=== PATIENT | male | born 1980 | race Caucasian/White ===

== ENCOUNTER 2023-03-07 16:46 | Observation (INO) | payer BC ==
[~2023-03-07] VITALS: Ht 188 cm; Wt 140.2 kg
[2023-03-07 16:46] VITALS: BP 133/102
--- NOTE | 2023-03-07 16:46 | NUR ---
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
[2023-03-07] MEDS ORDERED: NS 1000ML 1,000 ML IV STA (17:26)
[2023-03-07] MEDS ORDERED: NS 1000ML 1,000 ML ONE (17:30)
--- NOTE | 2023-03-07 17:30 | ER.PDOC ---
General Chief Complaint: General Complaint Stated Complaint: LOWER BACK PAIN Time seen by MD: 17:28 Source: patient Exam Limitations: no limitations History of Present Illness Initial Comments Abdominal pain, low back pain, generalized body aches, headache and does not just feel well for the last 3 days. He reports subjective fever. No nausea, vomiting or diarrhea. Severity/Quality: moderate, sharpness Radiation: no radiation Associated Symptoms: other (Lower back pain) Exacerbated by: nothing Relieved By: nothing Allergies: Coded Allergies: Penicillins (Verified Allergy, Unknown, ., 03/07/23) Vital Signs First Vital Signs Date Time Temp Pulse Resp B/P (MAP) Pulse Ox O2 Delivery O2 Flow Rate FiO2 03/07/23 16:46 99.9 134 18 93 03/07/23 16:46 133/102 (112) Room Air* 0 21 Last Vital Signs Date Time Temp Pulse Resp B/P (MAP) Pulse Ox O2 Delivery O2 Flow Rate FiO2 03/07/23 16:46 99.9 134 18 03/07/23 16:46 133/102 (112) 93 Room Air* 0 21 Past Medical History Medical History: diabetes Surgical History: no surgical history Family History Significant Family History: no pertinent family hx Social History Smoking: non-smoker Alcohol Use: none Drug Use: marijuana Constitutional: no symptoms reported EENTM: no symptoms reported Respiratory: no symptoms reported Cardiovascular: no symptoms reported Gastrointestinal: see HPI Musculoskeletal: see HPI All Other Systems: Reviewed and Negative Physical Exam General Appearance: No Apparent Distress, WD/WN, Obese HEENT: PERRL/EOMI, Normal ENT Inspection, TMs Normal, Pharynx Normal Neck: Non-Tender, Full Range of Motion, Supple, Normal Inspection Respiratory: chest non-tender, lungs clear, normal breath sounds, no respiratory distress, no accessory muscle use Cardiovascular: Normal Peripheral Pulses, Regular Rate, Rhythm, No Edema, No Gallop, No JVD, No Murmur Gastrointestinal: Normal Bowel Sounds, No Organomegaly, No Pulsatile Mass, Guarding, Tenderness (Upper abdomen) Back: Other (tenderness across lower back) Extremities: Normal Range of Motion, Non-Tender, Normal Inspection, No Pedal Edema, No Calf Tenderness, Normal Capillary Refill, Pelvis Stable 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 (03/07/23 17:26) Helicobacter Pylori (03/07/23 17:26) PT (03/07/23 17:26) Ct Abd/Pel With Iv Contrast (03/07/23 17:26) Partial Thromboplastin Time. (03/07/23 17:26) Urinalysis (03/07/23 17:26) Lactic Acid(Ml) (03/07/23 17:26) 0.9 % Sodium Chloride (Ns 1000ml) (03/07/23 17:26) EKG (03/07/23 17:) 0.9 % Sodium Chloride (Ns 1000ml) (03/07/23 17:30) Ondansetron Hcl/Pf (Zofran) (03/07/23 17:32) Covid19 Antigen Beronica Xenia (03/07/23 17:36) Ondansetron Hcl/Pf (Zofran) (03/07/23 17:36) Ketorolac Tromethamine (Toradol) (03/07/23 18:02) Ketorolac Tromethamine (Toradol) (03/07/23 18:03) Procalcitonin (03/07/23 18:10) Strep Screen (03/07/23 19:05) Vital Signs Date Time Temp Pulse Resp B/P (MAP) Pulse Ox O2 Delivery O2 Flow Rate FiO2 03/07/23 16:46 99.9 134 18 03/07/23 16:46 99.9 134 18 133/102 (112) 93 Room Air* 0 21 03/07/23 16:46 99.9 134 18 93 Administered Medications Medications (Trade) Dose Ordered Sig/Love Route PRN Reason Start Time Stop Time Status Last Admin Dose Admin Ketorolac Tromethamine (Toradol) 30 mg STAT STAT IV 03/07/23 18:02 03/07/23 18:03 DC 03/07/23 18:07 30 MG Ondansetron HCl (Zofran) 4 mg STAT STAT IV 03/07/23 17:36 03/07/23 17:37 DC 03/07/23 17:41 4 MG Sodium Chloride 1,000 ml @ 1,200 mls/hr Q50M STAT IV 03/07/23 17:26 03/07/23 18:15 DC 03/07/23 17:31 1,200 MLS/HR Laboratory Tests Test 03/07/23 00:00 03/07/23 17:31 03/07/23 17:33 03/07/23 19:10 Urine Collection Type RANDOM Urine Color YELLOW Urine Appearance CLEAR Urine Bilirubin NEGATIVE (NEGATIVE) Urine Ketones NEGATIVE (NEGATIVE) Urine Specific [place] 1.020 (1.005-1.030) Urine pH 8.5 (4.5-8.0) Urine Protein NEGATIVE (NEGATIVE) Urine Urobilinogen 0.2 E.U./dL (0.2) Urine Nitrate NEGATIVE (NEGATIVE) Urine Leukocyte Esterase NEGATIVE (NEGATIVE) Urine Glucose (Auto)(UA) NEGATIVE (NEGATIVE) Urine Blood NEGATIVE (NEGATIVE) White Blood Count 15.5 10^3/uL (4.5-11.0) H Red Blood Count 5.56 10^6/uL (4.50-5.90) Hemoglobin 15.2 g/dL (13.9-16.3) Hematocrit 45.8 % (37.0-53.0) Mean Corpuscular Volume 82.4 fL (78-100) Mean Corpuscular Hemoglobin 27.3 pg (26-34) Mean Corpuscular Hemoglobin Concent 33.2 g/dL (33-36.5) Red Cell Distribution Width 13.2 % (11.5-14.5) Platelet Count 204 10^3/uL (150-400) Mean Platelet Volume 10.0 fL (7.8-11.0) Neutrophils (%) (Auto) 91.4 % (41.0-85.0) *H Lymphocytes (%) (Auto) 4.3 % (24.0-44.0) *L Monocytes (%) (Auto) 3.5 % (5.0-12.0) L Neutrophils # (Auto) 14.2 10^3/uL (1.8-7.7) H Lymphocytes # (Auto) 0.67 10^3/uL1 (1.0-4.8) L Monocytes # (Auto) 0.5 10^3/uL (0.3-0.8) Absolute Immature Granulocyte (auto 0.02 10^3 u/L (0-2) Absolute Eosinophils (auto) 0.1 10^3/uL (0.0-0.2) Immature Granulocytes % 0.10 % (0.00-0.50) Eosinophils % 0.4 % (0.0-5.0) Basophils % 0.3 % (0.0-0.2) H Basophils # 0.0 10^3/uL (0.0-0.1) Prothrombin Time 10.2 SEC (9.7-11.6) INR 1.0 Activated Partial Thromboplast Time 23.6 SEC (22.5-33.1) Sodium Level 140 mmol/L (132-145) Potassium Level 3.6 mmol/L (3.6-5.2) Chloride Level 103.0 mmol/L (96-109) Carbon Dioxide Level 27.4 mmol/L (20.0-32) Anion Gap 13.2 Blood Urea Nitrogen 11 mg/dL (7-18) Creatinine 1.14 mg/dL (0.59-1.40) Estimated GFR () 85.2 (>/=60) Est GFR (CKD-EPI)(Non-Afr [place]) 70.4 (>/=60) BUN/Creatinine Ratio 9.0 (10.0-20.0) L Glucose Level 93 mg/dL (70-110) Lactic Acid Level 1.6 mmol/L (0.5-1.9) Calcium Level 8.8 mg/dL (8.4-10.5) Total Bilirubin 1.8 mg/dL (0.2-1.0) H Aspartate Amino Transferase (AST) 30 U/L (0-35) Alanine Aminotransferase (ALT) 58 U/L (12-78) Alkaline Phosphatase 87 U/L (50-136) Total Protein 7.7 g/dL (6.4-8.2) Albumin 4.1 g/dL (3.4-5.0) Globulin 3.6 Albumin/Globulin Ratio 1.138 Lipase 32 U/L (16-77) Procalcitonin 7.68 ng/mL (0.05-0.5) *H Helicobacter pylori Screen NEGATIVE (NEGATIVE) SARS-CoV-2 Antigen (Rapid) NEGATIVE (NEGATIVE) Group A Streptococcus Screen NEGATIVE (NEGATIVE) Progress Progress CT abdomen/pelvis: No acute abnormality within the abdomen or pelvis. 2. Hepatic steatosis. 3. Small hiatal hernia. 4. Additional findings, as above. Chemistry normal, lipase normal, lactate 1.6, WBC 15.5 and hemoglobin 15.2. COVID is negative. Strep negative. Pro-Ted 7.68, urinalysis is negative. Patient received IV fluids and Toradol. Heart rate improved from 130s to 105. He is feeling better. Patient meets SIRS criteria and will be admitted for observation. EKG/XRAY/CT/US EKG: NSR EKG Comments: HR 114, sinus tachycardia ER DEPART Departure Time of Disposition: 20:02 Disposition: 09 ADMITTED INPATIENT Impression: Primary Impression: SIRS (systemic inflammatory response syndrome) Additional Impressions: Dehydration Abdominal pain Condition: Improved Referrals: PCP,UNKNOWN (PCP) PRIMARY CARE PROVIDER Comments Admitted to Dr. Yanez Duration or Time Spent with Pa: 60 min Problem Qualifiers Additional Impressions: Abdominal pain Abdominal location: upper abdomen, unspecified Qualified Codes: R10.10 - Upper abdominal pain, unspecified JAZMINE ARCE MD Mar 07, 2023 17:30
[2023-03-07] MEDS ORDERED: ZOFRAN ONE (17:32)
[2023-03-07] MEDS ORDERED: ZOFRAN IV STA (17:36)
--- NOTE | 2023-03-07 17:40 | PCM.EKG ---
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
[2023-03-07 17:41] LABS: BASOPHIL % 0.3 % (0.0-0.2); EOSINOPHIL # 0.1 10^3/uL (0.0-0.2); EOSINOPHIL % 0.4 % (0.0-5.0); LYMPHOCYTES # 0.67 10^3/uL1 (1.0-4.8); LYMPHOCYTES % 4.3 % (24.0-44.0); MEAN CORP HGB 27.3 pg (26-34); MONOCYTES # 0.5 10^3/uL (0.3-0.8); MONOCYTES % 3.5 % (5.0-12.0); NEUTROPHIL # 14.2 10^3/uL (1.8-7.7); NEUTROPHILS % 91.4 % (41.0-85.0); PLATELET COUNT 204 10^3/uL (150-400); RED CELL DISTRIBUTION WIDTH 13.2 % (11.5-14.5)
[2023-03-07 17:46] LABS: BILIRUBIN,URINE NEGATIVE (NEGATIVE); UROBILINOGEN,URINE 0.2 E.U./dL (0.2)
[2023-03-07 17:57] LABS: CARBON DIOXIDE 27.4 mmol/L (20.0-32)
[2023-03-07] MEDS ORDERED: TORADOL IV STA (18:02)
[2023-03-07] MEDS ORDERED: TORADOL ONE (18:03)
--- NOTE | 2023-03-07 18:50 | NUR ---
CRITICAL LAB PROCAL 7.68 DR. ARCE NOTIFIED NO NEW ORDERS.
--- NOTE | 2023-03-07 19:02 | DIREP ---
PROCEDURE:CT ABD/PELVIS WITH CONTRAST TECHNIQUE:No oral contrast was given. Following the intravenous administration of contrast material, venous phase cuts were obtained through the abdomen and pelvis. The images were viewed at lung, liver, bone, and soft tissue settings. Sagittal and coronal reconstructions are provided. COMPARISON:None. INDICATIONS:Upper abdominal pain FINDINGS: LOWER CHEST:Minimal dependent atelectasis and/or scarring in the posterior right lower lobe. The lung bases are otherwise clear. Small hiatal hernia. LIVER:Diffuse hepatic steatosis. No focal hepatic lesion. BILIARY:Normal. PANCREAS:Normal. SPLEEN:Normal size. No focal splenic lesion. URINARY TRACT:3.3 cm cyst in the posterior midportion of left kidney. Too small to characterize hypodensity in the inferior pole right kidney also likely represents a tiny cyst. Symmetric renal enhancement. No hydronephrosis. The bladder is unremarkable. ADRENALS:Normal. AORTA/VASCULAR:Normal. RETROPERITONEUM:Normal. No enlarged lymph nodes. BOWEL/MESENTERY:Somewhat limited evaluation due to lack of oral contrast. No obstructive or inflammatory changes. Normal retrocecal appendix in the right mid abdomen. No free fluid, free air, or adenopathy. ABDOMINAL WALL:Tiny, fat containing, umbilical hernia. Otherwise unremarkable. PELVIS:The prostate is normal in size. No pelvic free fluid or adenopathy. Small right pelvic phlebolith. BONES:Mild, left convexity, lumbar curvature with minimal degenerative changes in the lower thoracic lumbar spine. No acute abnormality or suspicious osseous lesion. OTHER:Normal. CONCLUSION: 1. No acute abnormality within the abdomen or pelvis. 2. Hepatic steatosis. 3. Small hiatal hernia. 4. Additional findings, as above. Dictated by: Kyler Romero MD on 03/07/2023 at 06:56 PM
--- NOTE | 2023-03-07 19:48 | NUR ---
HOSPITALIST EDP ON PHONE WITH HOSPITALIST AT THIS TIME TO DISCUSS NEED OF ADMISSION/PATIENT PLAN OF CARE.
[2023-03-07] MEDS ORDERED: HNS 1000ML/KCL 20MEQ 1,000 ML IV STA (20:03)
[2023-03-07] MEDS ORDERED: ROCEPHIN 1,000 MG in NS 100ML 100 ML IV STA (20:03)
[2023-03-07] MEDS ORDERED: ROCEPHIN ONE (20:11)
[2023-03-07] MEDS ORDERED: NS 100ML 100 ML IV ONE (20:11)
[2023-03-07] MEDS ORDERED: HNS 1000ML/KCL 20MEQ 1,000 ML ONE (20:12)
--- NOTE | 2023-03-07 21:05 | NUR ---
patient arrived via wheelchair, awake and coherent with g18 on left AC with IVF flowing well. vital signs taken. informed Dr. Yanez on the admission. made comfortable on bed.
[2023-03-07 21:30] VITALS: BP 112/73
[2023-03-07] MEDS ORDERED: MORPHINE SULFATE IV PRN (22:30)
[2023-03-07] MEDS ORDERED: TYLENOL PO PRN (22:30)
[2023-03-07] MEDS ORDERED: ROCEPHIN 1,000 MG in NS 100ML 100 ML IV SCH (22:30)
[2023-03-08 00:01] VITALS: BP 116/64
--- NOTE | 2023-03-08 02:20 | NUR ---
Dr. Yanez called and talked with the patient and he ordered to give Benadryl 50mg IV OT and Zofran 8mg IV OT
[2023-03-08] MEDS ORDERED: ZOFRAN IV ONE ×2 (02:27→23:30)
[2023-03-08] MEDS ORDERED: BENADRYL IV ONE (02:28)
[2023-03-08 04:10] VITALS: BP 112/64
[2023-03-08 06:51] LABS: BASOPHIL % 0.3 % (0.0-0.2); LYMPHOCYTES % 3.7 % (24.0-44.0); MEAN CORP HGB 27.3 pg (26-34); MONOCYTES # 0.4 10^3/uL (0.3-0.8); MONOCYTES % 3.9 % (5.0-12.0); NEUTROPHILS % 91.9 % (41.0-85.0); PLATELET COUNT 176 10^3/uL (150-400); RED CELL DISTRIBUTION WIDTH 13.5 % (11.5-14.5)
[2023-03-08 07:13] LABS: CARBON DIOXIDE 25.1 mmol/L (20.0-32)
[2023-03-08] MEDS: PROTONIX PO SCH (11:12)
--- NOTE | 2023-03-08 13:51 | PCM.HP ---
HISTORY & PHYSICAL HISTORY & PHYSICAL DATE OF ADMISSION: March 08, 2023 CHIEF COMPLAINT: Abdominal pain for 1 day with nausea no vomiting. HISTORY OF PRESENT ILLNESS: 42-year-old male with previous history of GERD and occasional migraine headache was apparently in his usual health he traveled from [place] to [facility] due to his employment and he was staying in a hotel and he developed low back pain after lying down on the new bed for 3 days and on the day of admission she developed headache with abdominal pain nausea but had normal bowel movement she also claims he had fever and chills therefore came to the ER and admitted for further management Patient denies any vomiting diarrhea and claimed to have no symptoms of dysuria hematuria or increased frequency of urination abdominal pain is mid abdomen nonradiating no aggravating factor no relieving factor the pain was relieved after pain medication Since then he did not Have any abdominal pain tolerating p.o. intake well . 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 intake well had normal bowel movement yesterday no urinary symptoms no other musculoskeletal symptoms low back pain has resolved All systems reviewed and negative except mentioned above VITAL SIGNS: Vital Signs Date Time Temp Pulse Resp B/P (MAP) Pulse Ox O2 Delivery O2 Flow Rate FiO2 03/08/23 04:10 98.5 90 18 112/64 (80) 97 Room Air* 0 03/08/23 00:01 97.7 87 18 116/64 (81) 96 Room Air* 0 21 03/07/23 21:30 97.8 92 18 112/73 (86) 95 Room Air* 0 21 03/07/23 21:05 Room Air 0.00 03/07/23 16:46 99.9 134 18 03/07/23 16:46 99.9 134 18 133/102 (112) 93 Room Air* 0 21 03/07/23 16:46 99.9 134 18 93 PHYSICAL EXAMINATION: HEENT anicteric sclera pupil equal react light mucous membrane is moist neck supple Lungs are clear to auscultation no wheezes or rails heard Heart regular rate and rhythm no murmur or gallop appreciated Abdomen obese nontender bowel sounds present no guarding no rigidity Extremities no edema no calf tenderness noted LABORATORY DATA: Laboratory Tests Test 03/07/23 00:00 03/07/23 06:12 03/07/23 17:31 03/07/23 17:33 Urine Collection Type RANDOM Urine Color YELLOW Urine Appearance CLEAR Urine Bilirubin NEGATIVE (NEGATIVE) Urine Ketones NEGATIVE (NEGATIVE) Urine Specific [place] 1.020 (1.005-1.030) Urine pH 8.5 (4.5-8.0) Urine Protein NEGATIVE (NEGATIVE) Urine Urobilinogen 0.2 E.U./dL (0.2) Urine Nitrate NEGATIVE (NEGATIVE) Urine Leukocyte Esterase NEGATIVE (NEGATIVE) Urine Glucose (Auto)(UA) NEGATIVE (NEGATIVE) Urine Blood NEGATIVE (NEGATIVE) Thyroid Stimulating Hormone (TSH) 0.318 mIU/mL (0.358-3.740) White Blood Count 15.5 10^3/uL (4.5-11.0) Red Blood Count 5.56 10^6/uL (4.50-5.90) Hemoglobin 15.2 g/dL (13.9-16.3) Hematocrit 45.8 % (37.0-53.0) Mean Corpuscular Volume 82.4 fL (78-100) Mean Corpuscular Hemoglobin 27.3 pg (26-34) Mean Corpuscular Hemoglobin Concent 33.2 g/dL (33-36.5) Red Cell Distribution Width 13.2 % (11.5-14.5) Platelet Count 204 10^3/uL (150-400) Mean Platelet Volume 10.0 fL (7.8-11.0) Neutrophils (%) (Auto) 91.4 % (41.0-85.0) Lymphocytes (%) (Auto) 4.3 % (24.0-44.0) Monocytes (%) (Auto) 3.5 % (5.0-12.0) Neutrophils # (Auto) 14.2 10^3/uL (1.8-7.7) Lymphocytes # (Auto) 0.67 10^3/uL1 (1.0-4.8) Monocytes # (Auto) 0.5 10^3/uL (0.3-0.8) Absolute Immature Granulocyte (auto 0.02 10^3 u/L (0-2) Absolute Eosinophils (auto) 0.1 10^3/uL (0.0-0.2) Immature Granulocytes % 0.10 % (0.00-0.50) Eosinophils % 0.4 % (0.0-5.0) Basophils % 0.3 % (0.0-0.2) Basophils # 0.0 10^3/uL (0.0-0.1) Prothrombin Time 10.2 SEC (9.7-11.6) INR International Normalized Ratio 1.0 Activated Partial Thromboplast Time 23.6 SEC (22.5-33.1) Sodium Level 140 mmol/L (132-145) Potassium Level 3.6 mmol/L (3.6-5.2) Chloride Level 103.0 mmol/L (96-109) Carbon Dioxide Level 27.4 mmol/L (20.0-32) Anion Gap 13.2 Blood Urea Nitrogen 11 mg/dL (7-18) Creatinine 1.14 mg/dL (0.59-1.40) Estimated GFR () 85.2 (>/=60) Est GFR (CKD-EPI)(Non-Afr [place]) 70.4 (>/=60) BUN/Creatinine Ratio 9.0 (10.0-20.0) Glucose Level 93 mg/dL (70-110) Lactic Acid Level 1.6 mmol/L (0.5-1.9) Calcium Level 8.8 mg/dL (8.4-10.5) Total Bilirubin 1.8 mg/dL (0.2-1.0) Aspartate Amino Transf (AST/SGOT) 30 U/L (0-35) Alanine Aminotransferase (ALT/SGPT) 58 U/L (12-78) Alkaline Phosphatase 87 U/L (50-136) Total Protein 7.7 g/dL (6.4-8.2) Albumin 4.1 g/dL (3.4-5.0) Globulin 3.6 Albumin/Globulin Ratio 1.138 Lipase 32 U/L (16-77) Procalcitonin 7.68 ng/mL (0.05-0.5) Helicobacter pylori Screen NEGATIVE (NEGATIVE) SARS-CoV-2 Antigen (Rapid) NEGATIVE (NEGATIVE) Test 03/07/23 19:10 03/08/23 06:12 03/08/23 07:40 Group A Streptococcus Screen NEGATIVE (NEGATIVE) White Blood Count 10.9 10^3/uL (4.5-11.0) Red Blood Count 4.90 10^6/uL (4.50-5.90) Hemoglobin 13.4 g/dL (13.9-16.3) Hematocrit 41.1 % (37.0-53.0) Mean Corpuscular Volume 83.9 fL (78-100) Mean Corpuscular Hemoglobin 27.3 pg (26-34) Mean Corpuscular Hemoglobin Concent 32.6 g/dL (33-36.5) Red Cell Distribution Width 13.5 % (11.5-14.5) Platelet Count 176 10^3/uL (150-400) Mean Platelet Volume 10.7 fL (7.8-11.0) Neutrophils (%) (Auto) 91.9 % (41.0-85.0) Lymphocytes (%) (Auto) 3.7 % (24.0-44.0) Monocytes (%) (Auto) 3.9 % (5.0-12.0) Neutrophils # (Auto) 10.0 10^3/uL (1.8-7.7) Lymphocytes # (Auto) 0.40 10^3/uL1 (1.0-4.8) Monocytes # (Auto) 0.4 10^3/uL (0.3-0.8) Absolute Immature Granulocyte (auto 0.02 10^3 u/L (0-2) Absolute Eosinophils (auto) 0.0 10^3/uL (0.0-0.2) Immature Granulocytes % 0.20 % (0.00-0.50) Eosinophils % 0.0 % (0.0-5.0) Basophils % 0.3 % (0.0-0.2) Basophils # 0.0 10^3/uL (0.0-0.1) Sodium Level 140 mmol/L (132-145) Potassium Level 3.9 mmol/L (3.6-5.2) Chloride Level 105.0 mmol/L (96-109) Carbon Dioxide Level 25.1 mmol/L (20.0-32) Glucose Level 118 mg/dL (70-110) Blood Urea Nitrogen 12 mg/dL (7-18) Creatinine 1.06 mg/dL (0.59-1.40) Calcium Level 8.3 mg/dL (8.4-10.5) Anion Gap 13.8 Estimated GFR () 92.7 (>/=60) Est GFR (CKD-EPI)(Non-Afr [place]) 76.6 (>/=60) BUN/Creatinine Ratio 11.0 (10.0-20.0) Total Creatine Kinase 56 U/L (39-308) Troponin I High Sensitivity 7 ng/L (0-75) Pro-B-Type Natriuretic Peptide 305 pg/mL (0-125) Influenza Type A Antigen NEGATIVE (NEG) Influenza Type B Antigen NEGATIVE (NEG) IMAGING: SUMMARY: 42-year-old male with previous history of GERD presented to the ER with abdominal pain nausea and found to have leukocytosis patient was admitted for overnight observation this morning patient is symptom-free tolerating p.o. intake well WBC has resolved we will observe till evening and discharge patient home if tolerated Cipro ASSESSMENT/PLAN: Acute gastroenteritis mild with leukocytosis resolving Back pain suspect transient musculoskeletal pain History of GERD Plan: Give second dose of Rocephin today, discharge patient on Ceftin for 3 more days. ANDREY SOTELO MD Mar 08, 2023 13:51
[2023-03-08 14:08] VITALS: BP 118/79
[2023-03-08] MEDS ORDERED: MAGNESIUM OXIDE PO STA (15:08)
[2023-03-08] MEDS ORDERED: LYRICA PO STA (16:26)
[2023-03-08] MEDS ORDERED: ROCEPHIN 1,000 MG in NS 100ML 100 ML IV SCH ×2 (17:00→20:00)
[2023-03-08] MEDS ORDERED: LYRICA PO ONE (18:00)
[2023-03-08] MEDS ORDERED: COMPAZINE IV STA (18:02)
--- NOTE | 2023-03-08 18:13 | PRM.CONS ---
Consultation History of Present Illness History of Patient Comments Patient is a 42 yo male with a PMH GERD and neuropathy that presents to the ED because of periumbilical pain radiating to the LLQ that started 03/07/23 at noon and getting worse. Never experienced to this extent before and gradually getting worse. no palliation. (+) constant. no change in diet. 8-9/10 pain. (+) nausea w/o vomiting. no diarrhea, constipation, dysuria or fever. First Vital Signs Date Time Temp Pulse Resp B/P (MAP) Pulse Ox O2 Delivery O2 Flow Rate FiO2 03/07/23 16:46 99.9 134 18 93 03/07/23 16:46 133/102 (112) Room Air* 0 21 Last Vital Signs Date Time Temp Pulse Resp B/P (MAP) Pulse Ox O2 Delivery O2 Flow Rate FiO2 03/08/23 14:08 97.9 98 18 118/79 (92) 93 Room Air* 0 21 Gen - nondistressed Heent - NCAT Neuro - AOX3 Psych - appropriate CV - No bilateral lower extremity edema Pulm - no respiratory distress Abd - soft, LLQ tenderness, non distended Skin - no rash MMSK - 5/5 strength in all 4 extremities Laboratory Tests Test 03/07/23 19:10 03/08/23 06:12 03/08/23 07:40 Group A Streptococcus Screen NEGATIVE White Blood Count 10.9 10^3/uL Red Blood Count 4.90 10^6/uL Hemoglobin 13.4 g/dL Hematocrit 41.1 % Mean Corpuscular Volume 83.9 fL Mean Corpuscular Hemoglobin 27.3 pg Mean Corpuscular Hemoglobin Concent 32.6 g/dL Red Cell Distribution Width 13.5 % Platelet Count 176 10^3/uL Mean Platelet Volume 10.7 fL Neutrophils (%) (Auto) 91.9 % Lymphocytes (%) (Auto) 3.7 % Monocytes (%) (Auto) 3.9 % Neutrophils # (Auto) 10.0 10^3/uL Lymphocytes # (Auto) 0.40 10^3/uL1 Monocytes # (Auto) 0.4 10^3/uL Absolute Immature Granulocyte (auto 0.02 10^3 u/L Absolute Eosinophils (auto) 0.0 10^3/uL Immature Granulocytes % 0.20 % Eosinophils % 0.0 % Basophils % 0.3 % Basophils # 0.0 10^3/uL Sodium Level 140 mmol/L Potassium Level 3.9 mmol/L Chloride Level 105.0 mmol/L Carbon Dioxide Level 25.1 mmol/L Glucose Level 118 mg/dL Blood Urea Nitrogen 12 mg/dL Creatinine 1.06 mg/dL Calcium Level 8.3 mg/dL Anion Gap 13.8 Estimated GFR () 92.7 Est GFR (CKD-EPI)(Non-Afr [place] African) 76.6 BUN/Creatinine Ratio 11.0 Total Creatine Kinase 56 U/L Troponin I High Sensitivity 7 ng/L Pro-B-Type Natriuretic Peptide 305 pg/mL Influenza Type A Antigen NEGATIVE Influenza Type B Antigen NEGATIVE Current Medications Medications (Trade) Dose Ordered Sig/Love Route PRN Reason Start Time Stop Time Status Last Admin Dose Admin Sodium Chloride 1,000 ml @ 1,200 mls/hr Q50M STAT IV 03/07/23 17:26 03/07/23 18:15 DC 03/07/23 17:31 Sodium Chloride 1,000 ml @ ud STK-MED ONCE .ROUTE 03/07/23 17:30 03/07/23 17:30 DC Ondansetron HCl (Zofran) 4 mg STK-MED ONCE .ROUTE 03/07/23 17:32 03/07/23 17:33 DC Ondansetron HCl (Zofran) 4 mg STAT STAT IV 03/07/23 17:36 03/07/23 17:37 DC 03/07/23 17:41 Ketorolac Tromethamine (Toradol) 30 mg STAT STAT IV 03/07/23 18:02 03/07/23 18:03 DC 03/07/23 18:07 Ketorolac Tromethamine (Toradol) 30 mg STK-MED ONCE .ROUTE 03/07/23 18:03 03/07/23 18:03 DC Potassium Chloride/Sodium Chloride 1,000 ml @ 100 mls/hr Q10H STAT IV 03/07/23 20:03 03/08/23 06:02 DC 03/07/23 20:15 Ceftriaxone Sodium 1000 mg/ Sodium Chloride 100 ml @ 100 mls/hr STAT STAT IV 03/07/23 20:03 03/07/23 21:02 DC 03/07/23 20:15 Ceftriaxone Sodium (Rocephin) 1,000 mg STK-MED ONCE .ROUTE 03/07/23 20:11 03/07/23 20:11 DC Sodium Chloride 100 ml @ ud STK-MED ONCE IV 03/07/23 20:11 03/07/23 20:12 DC Potassium Chloride/Sodium Chloride 1,000 ml @ ud STK-MED ONCE .ROUTE 03/07/23 20:12 03/07/23 20:12 DC Acetaminophen (Tylenol) 1,000 mg Q6H PRN PO PAIN 1 - 3 03/07/23 22:30 04/06/23 22:29 03/08/23 06:55 Morphine Sulfate (Morphine Sulfate) 2 mg Q4H PRN IV PAIN 4 - 6 03/07/23 22:30 04/06/23 22:29 03/08/23 10:18 Ceftriaxone Sodium 1000 mg/ Sodium Chloride 100 ml @ 200 mls/hr Q24HRS IV 03/07/23 22:30 03/07/23 22:20 DC Ceftriaxone Sodium 1000 mg/ Sodium Chloride 100 ml @ 200 mls/hr Q24HRS IV 03/08/23 20:00 03/08/23 13:54 DC Ondansetron HCl (Zofran) 8 mg OT ONCE IV 03/08/23 02:27 03/08/23 02:40 DC 03/08/23 02:32 Diphenhydramine HCl (Benadryl) 50 mg OT ONCE IV 03/08/23 02:28 03/08/23 02:40 DC 03/08/23 02:32 Pantoprazole Sodium (Protonix) 40 mg DAILY PO 03/09/23 09:00 03/08/23 11:01 DC Pantoprazole Sodium (Protonix) 40 mg DAILY PO 03/08/23 11:00 04/07/23 10:59 03/08/23 11:12 Ceftriaxone Sodium 1000 mg/ Sodium Chloride 100 ml @ 200 mls/hr Q24HRS IV 03/08/23 17:00 04/07/23 16:59 03/08/23 16:33 Magnesium Oxide (Magnesium Oxide) 400 mg STAT STAT PO 03/08/23 15:08 03/08/23 15:09 UNV 03/08/23 15:12 Pregabalin (Lyrica) 50 mg STAT STAT PO 03/08/23 16:26 03/08/23 16:27 UNV 03/08/23 16:33 Pregabalin (Lyrica) 50 mg BEDTIME ONCE PO 03/08/23 18:00 03/08/23 18:01 UNV Prochlorperazine Edisylate (Compazine) 10 mg STAT STAT IV 03/08/23 18:02 03/08/23 18:03 UNV 1. Lower abdominal pain - AVSS. white count 15. no anemia. normal plts. CMP shows no significant electrolyte abnormalities. lactic 1.6. normal lipase. negative UA. CT abd (-). Start IVF and pain meds. admit to observation. 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 Independent Interpretation of Imaging Studies: NA 2. Management Discussions with Other Healthcare Providers, Caregivers or Family : ERP 3. Social Determinants of Health and Impact on Medical Decision-Making : literacy 4. Risk factors/Other conditions I have considered which impact or potentially impact acute patient care include but are not limited to: literacy 5. Consideration of Tests - The indication and diagnostic value of the following test was considered and deemed not to be acutely necessary to impact patient care management at this time: MRI 6. Consideration of Hospitalization - The necessity, risks and benefits of hospitalization were considered along with the intensity of treatment necessary to match the current severity of illness. After shared decision-making, it has been determined that patient is an appropriate candidate for: Hospitalization 7. Consideration of Prescriptions - NA Telemedicine Notation Service was provided using HIPPA compliant web platform using secure, live, [id number] audio/visual equipment. Patient Location: [facility] Participants internal combustion engine assembler: bedside RN, patient Physician internal combustion engine assembler: Renata Location of provider: [facility] I confirmed with the patient and they have chosen to receive care using a virtual visit. I explained that the virtual visit enables health care providers at different locations to provide effective care using technology. As with any healthcare service, I explained that there are risks including equipment failure, poor connection and possibly security issues. I explained that through a virtual visit, a physical examination cannot be completely performed and if necessary, they may need to be seen by an in-house physician to complete the assessment. I verified the patient identity with 2 identifiers including for name and date of . The risks, benefits and alternatives to virtual visits were explained to the patient. Questions were answered. Consent obtained for a virtual visit. I admitted the patient to the Inpatient floor under my care on 03/07/2023 VTE VTE Risk Total Score: 1 VTE Risk Score VTE Risk: Score 0-1 = Low Risk (Aggressive mobilization; early ambulation; no VTE prophylaxis required) Score 2: Moderate Risk (Intermittent/Pneumatic Compression Device OR Lovenox/Heparin/Coumadin) Score 3-4: High Risk (Intermittent/Pneumatic Compression Device AND Lovenox/Heparin/Coumadin) Score > or =5: Highest Risk (Intermittent/Pneumatic Compression Device AND Lovenox/Heparin/Coumadin) VTE VTE Present on Admission: No Currently receiving anticoagul: No VTE Risk Total Score: 1 VTE VTE Risk Total Score: 1 JEREMY KENYON MD Mar 08, 2023 18:13
[2023-03-08] MEDS: DECADRON IV SCH ×2 (18:14→23:17)
--- NOTE | 2023-03-08 19:40 | DIREP ---
PROCEDURE:CT HEAD OR BRAIN W/O CONTRAST COMPARISON:None. INDICATIONS:acute severe headache TECHNIQUE:CT images were created without intravenous contrast. FINDINGS: VENTRICLES:The ventricles are normal in size and configuration. CEREBRUM:Normal cerebral morphology with appropriate ruff white matter differentiation. CEREBELLUM:Negative. BRAINSTEM:Negative. BASAL CISTERNS:Negative. HEMORRHAGE (Vol L*W*H*.52):No MASS LESION:No ACUTE INFARCT:No SKULL:Normal. SINUSES:Normal. OTHER:None CONCLUSION:Normal examination. Dictated by: Bk Peck M.D. on 03/08/2023 at 07:37 PM
[2023-03-08 19:48] VITALS: BP 120/84
[2023-03-08] MEDS ORDERED: BENADRYL PO STA (23:06)
[2023-03-08] MEDS ORDERED: MORPHINE SULFATE ONE (23:11)
[2023-03-08] MEDS ORDERED: BENADRYL PO ONE (23:11)
[2023-03-08] MEDS ORDERED: ZOFRAN ONE (23:11)
[2023-03-08] MEDS ORDERED: NS 1000ML 1,000 ML ONE (23:12)
[2023-03-08] MEDS: NS 1000ML 1,000 ML IV SCH (23:18)
[2023-03-08] MEDS ORDERED: MORPHINE SULFATE IV ONE (23:30)
[2023-03-09 00:08] VITALS: BP 129/81
[2023-03-09 04:24] VITALS: BP 107/74
[2023-03-09] MEDS: DECADRON IV SCH (05:57)
[2023-03-09 06:35] LABS: BASOPHIL % 0.1 % (0.0-0.2); LYMPHOCYTES # 0.88 10^3/uL1 (1.0-4.8); LYMPHOCYTES % 12.6 % (24.0-44.0); MEAN CORP HGB 27.3 pg (26-34); MONOCYTES # 0.4 10^3/uL (0.3-0.8); NEUTROPHIL # 5.7 10^3/uL (1.8-7.7); NEUTROPHILS % 82.2 % (41.0-85.0); PLATELET COUNT 178 10^3/uL (150-400)
[2023-03-09 07:40] VITALS: BP 111/79
[2023-03-09] MEDS: PROTONIX PO SCH (08:33)
[2023-03-09] MEDS ORDERED: PROTONIX PO SCH (09:00)
[2023-03-09] MEDS: NS 1000ML 1,000 ML IV SCH (09:30)
[2023-03-09 11:13] VITALS: BP 146/93
[2023-03-09] MEDS ORDERED: CEFU500T49 PO (11:28)
--- NOTE | 2023-03-09 11:36 | PRM.DC ---
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 And repeat labs today showed white blood cell is back to his baseline patient is tolerating p.o. intake well will be discharged on cefuroxime p.o. for 7 days to complete and advised to follow-up with PCP within 1 week time. Additional Comments Follow-up with PCP in 1 week time and if symptom recurs to return to the hospital General: Alert, Oriented X3, Cooperative, No acute distress HEENT: Atraumatic, PERRLA, EOMI, Mucous membr. moist/pink Neck: Supple Lungs: Clear to auscultation, Normal air movement Heart: Regular rate, Normal S1, Normal S2, No murmurs Abdomen: Normal bowel sounds, Soft, No tenderness Extremities: No clubbing, No cyanosis Scheduled Cefuroxime Axetil (Cefuroxime), 1 TAB PO BID Sepsis Evaluation @ Discharge 03/09/23 21:19 Course Sepsis Screening Results: Posi: NEGATIVE Sepsis Qualifier/Stage: NO DEFINITE RISK DATE SEEN BY PHYSICIAN: Mar 09, 2023 Duration or Total Time Spent w: 60 min Vitals & review Data Vital Sign - Last 24 Hours 03/08/23 03/08/23 03/08/23 03/08/23 13:53 14:08 19:48 21: Temp 97.9 101.2 Pulse 98 109 Resp 18 17 B/P (MAP) 118/79 (92) 120/84 (96) Pulse Ox 93 95 O2 Delivery Room Air Room Air* Room Air* Room Air O2 Flow Rate 0.00 0 0 0.00 FiO2 03/09/23 03/09/23 03/09/23 03/09/23 00:08 04:24 07:40 09:00 Temp 97.8 97.4 98.8 Pulse 88 70 78 Resp 20 18 18 B/P (MAP) 129/81 (97) 107/74 (85) 111/79 (90) Pulse Ox 93 93 94 O2 Delivery Room Air* Room Air* Room Air* Room Air O2 Flow Rate 0 0 0 0.00 FiO2 21 21 21 03/09/23 11:13 Temp 98.0 Pulse 77 Resp 17 B/P (MAP) 146/93 (110) Pulse Ox 97 O2 Delivery Room Air* O2 Flow Rate 0 FiO2 21 Intake and Output 03/09/23 07:00 Intake Total 820 ml Balance 820 ml Laboratory Tests Test 03/07/23 17:31 03/07/23 17:33 03/07/23 19:10 03/08/23 06:12 White Blood Count 15.5 10^3/uL 10.9 10^3/uL Red Blood Count 5.56 10^6/uL 4.90 10^6/uL Hemoglobin 15.2 g/dL 13.4 g/dL Hematocrit 45.8 % 41.1 % Mean Corpuscular Volume 82.4 fL 83.9 fL Mean Corpuscular Hemoglobin 27.3 pg 27.3 pg Mean Corpuscular Hemoglobin Concent 33.2 g/dL 32.6 g/dL Red Cell Distribution Width 13.2 % 13.5 % Platelet Count 204 10^3/uL 176 10^3/uL Mean Platelet Volume 10.0 fL 10.7 fL Neutrophils (%) (Auto) 91.4 % 91.9 % Lymphocytes (%) (Auto) 4.3 % 3.7 % Monocytes (%) (Auto) 3.5 % 3.9 % Neutrophils # (Auto) 14.2 10^3/uL 10.0 10^3/uL Lymphocytes # (Auto) 0.67 10^3/uL1 0.40 10^3/uL1 Monocytes # (Auto) 0.5 10^3/uL 0.4 10^3/uL Absolute Immature Granulocyte (auto 0.02 10^3 u/L 0.02 10^3 u/L Absolute Eosinophils (auto) 0.1 10^3/uL 0.0 10^3/uL Immature Granulocytes % 0.10 % 0.20 % Eosinophils % 0.4 % 0.0 % Basophils % 0.3 % 0.3 % Basophils # 0.0 10^3/uL 0.0 10^3/uL Prothrombin Time 10.2 SEC INR International Normalized Ratio 1.0 Activated Partial Thromboplast Time 23.6 SEC Sodium Level 140 mmol/L 140 mmol/L Potassium Level 3.6 mmol/L 3.9 mmol/L Chloride Level 103.0 mmol/L 105.0 mmol/L Carbon Dioxide Level 27.4 mmol/L 25.1 mmol/L Anion Gap 13.2 13.8 Blood Urea Nitrogen 11 mg/dL 12 mg/dL Creatinine 1.14 mg/dL 1.06 mg/dL Estimated GFR () 85.2 92.7 Est GFR (CKD-EPI)(Non-Afr [place]ican) 70.4 76.6 BUN/Creatinine Ratio 9.0 11.0 Glucose Level 93 mg/dL 118 mg/dL Lactic Acid Level 1.6 mmol/L Calcium Level 8.8 mg/dL 8.3 mg/dL Total Bilirubin 1.8 mg/dL Aspartate Amino Transf (AST/SGOT) 30 U/L Alanine Aminotransferase (ALT/SGPT) 58 U/L Alkaline Phosphatase 87 U/L Total Protein 7.7 g/dL Albumin 4.1 g/dL Globulin 3.6 Albumin/Globulin Ratio 1.138 Lipase 32 U/L Procalcitonin 7.68 ng/mL Helicobacter pylori Screen NEGATIVE SARS-CoV-2 Antigen (Rapid) NEGATIVE Group A Streptococcus Screen NEGATIVE Total Creatine Kinase 56 U/L Troponin I High Sensitivity 7 ng/L Pro-B-Type Natriuretic Peptide 305 pg/mL Test 03/08/23 07:40 03/09/23 06:08 Influenza Type A Antigen NEGATIVE Influenza Type B Antigen NEGATIVE White Blood Count 7.0 10^3/uL Red Blood Count 5.35 10^6/uL Hemoglobin 14.6 g/dL Hematocrit 44.9 % Mean Corpuscular Volume 83.9 fL Mean Corpuscular Hemoglobin 27.3 pg Mean Corpuscular Hemoglobin Concent 32.5 g/dL Red Cell Distribution Width 13.0 % Platelet Count 178 10^3/uL Mean Platelet Volume 10.2 fL Neutrophils (%) (Auto) 82.2 % Lymphocytes (%) (Auto) 12.6 % Monocytes (%) (Auto) 5.0 % Neutrophils # (Auto) 5.7 10^3/uL Lymphocytes # (Auto) 0.88 10^3/uL1 Monocytes # (Auto) 0.4 10^3/uL Absolute Immature Granulocyte (auto 0.01 10^3 u/L Absolute Eosinophils (auto) 0.0 10^3/uL Immature Granulocytes % 0.10 % Eosinophils % 0.0 % Basophils % 0.1 % Basophils # 0.0 10^3/uL Sodium Level 141 mmol/L Potassium Level 4.5 mmol/L Chloride Level 104.0 mmol/L Carbon Dioxide Level 29.0 mmol/L Anion Gap 12.5 Blood Urea Nitrogen 11 mg/dL Creatinine 1.00 mg/dL Estimated GFR () 99.2 Est GFR (CKD-EPI)(Non-Afr [place]ican) 81.9 BUN/Creatinine Ratio 11.0 Glucose Level 148 mg/dL Calcium Level 8.5 mg/dL Magnesium Level 2.1 mg/dL Total Bilirubin 1.2 mg/dL Aspartate Amino Transf (AST/SGOT) 46 U/L Alanine Aminotransferase (ALT/SGPT) 89 U/L Alkaline Phosphatase 78 U/L C-Reactive Protein 7.94 mg/dL Total Protein 7.1 g/dL Albumin 3.5 g/dL Globulin 3.6 Albumin/Globulin Ratio 0.972 Current Medications Medications (Trade) Dose Ordered Sig/Love PRN Reason Start Time Stop Time Status Last Admin Acetaminophen (Tylenol) 1,000 mg Q6H PRN PAIN 1 - 3 03/07/23 22:30 04/06/23 22:29 03/08/23 06:55 Ceftriaxone Sodium 1000 mg/ Sodium Chloride 100 ml @ 200 mls/hr Q24HRS 03/08/23 17:00 04/07/23 16:59 03/08/23 16:33 Morphine Sulfate (Morphine Sulfate) 2 mg Q4H PRN PAIN 4 - 6 03/07/23 22:30 04/06/23 22:29 03/08/23 10:18 Pantoprazole Sodium (Protonix) 40 mg DAILY 03/08/23 11:00 04/07/23 10:59 03/09/23 08:33 Sodium Chloride 1,000 ml @ 100 mls/hr Q10H 03/08/23 23:30 04/07/23 23:29 03/08/23 23:18 LEVEL 1 SEPSIS INFECTION CRITE: ABX Therapy, Abdominal Pain LEVEL 2-SIRS (LIST ALL THAT AP: None/Not assessed Cardiovascular Evidence: Not Assessed or None Hematologic Evidence: None/Not assessed Hepatic Evidence: None/Not assessed Metabolic Evidence: None/Not assessed Neurological Evidence: None/Not assessed Respiratory Evidence: None/Not assessed Renal Evidence: None/Not assessed O2 Sat by Pulse Oximetry: 97 Oxygen Flow Rate: 0.00 Plan Assessment Acute gastroenteritis-Resolved Migraine Headache-resolved Hepatosteatosis Discharge Date: Mar 09, 2023 Discharge Disposition: Stable Plan Patient was advised to follow-up with PCP within 1 week time and if fever recurs so no headaches or any other symptoms right because patient to return back to the hospital. ANDREY SOTELO MD Mar 09, 2023 11:36
--- NOTE | 2023-03-09 12:40 | NUR ---
DISCHARGE DISCHARGE INSTRUCTIONS PROVIDED AT THIS TIME. PT VOICED UNDERSTANDING. PT HAD NO IV ACCESS AT TIME OF DISCHARGE. PT WAS ACCOMPANIED BY [facility] NURSING STAFF TO PRIVATE AUTO VIA W/C. PT DENIES PAIN NEEDS OR WANTS.
[2023-03-09 12:48] VITALS: BP 146/93
== END 2023-03-09 12:41 | disposition home or self-care (01) ==
LOC: ER 16:46 → MS 20:03
PROVIDERS: ADMIT Hospitalist; ATTEND Hospitalist
DX: K52.9 Noninfective gastroenteritis and colitis, unspecified (principal); Z20.822 Contact with and (suspected) exposure to COVID-19; R65.10 Systemic inflammatory response syndrome (SIRS) of non-infectious origin without acute organ dysfunction; K21.9 Gastro-esophageal reflux disease without esophagitis; G43.909 Migraine, unspecified, not intractable, without status migrainosus; E86.0 Dehydration; K76.0 Fatty (change of) liver, not elsewhere classified; E11.9 Type 2 diabetes mellitus without complications; M54.9 Dorsalgia, unspecified; D72.829 Elevated white blood cell count, unspecified
CPT/HCPCS: 96365; 96366 ×2; 96361; 96375 ×2; 99285; 74177; 81003; 87426; 80053 ×2; 85025 ×3; 86677; 36415 ×3; 87070; 83605; 87880; 84145; 84443; 83690; 85610; 85730; 93005; 96376; 70450; 80048; 84484; 87804 ×2; 83880; 82550; 86140; 83735; G0378 ×41; J7030 ×3; J0696 ×3; J2405 ×3; J1885; Q9965; J2270; C9399 ×2; Q0163; J1200; J0780; J1100 ×2; A9150